=== PATIENT | female | born 1960 | race Caucasian/White ===

== ENCOUNTER 2021-10-22 16:00 | Outpatient (RCR) | payer OTHER, SELFPAY ==
--- NOTE | 2021-08-25 16:53 | HP.PTEVAL_ITS ---
Patient's Visit Information RISHI GRAF is a 61 year old F referred to Physical Therapy by Dr. Libia Cox DO with a diagnosis of B achilles tendonitis.. Date of Evaluation: 08/25/21 Physical Therapist: Last Salcido, DPT, OCS, CSCS - Visit Plan Frequency: 3x /Week Duration: 4-6 Weeks Plan: 3x/.week for 3-6 weeks. Heel lift put in R shoe and asked to where that or [employer] at all times. may choose to buy heel lifts if helpful. Treat with US to R medial achilles non thermal each session please, activitiy modification, STM and rollout to R gastroc, PROM and stretching B gastroc, eccentric strength and progression to HEP - Subjective Ankle and foot hurt. Was seeing dr. chris adn had PT for PFitis. Was treated with therapy for that and achilles tendonitis. It helped some and that was in March/April. Wasn't doing great and sought another opinion. (had stopped ex as it was not changing) Will f/u with doctor in one month. Pain is mostly R foot inside of ankle./heel. Pain is worse with activity and 0-8/10. it is about a year old and worse with outdoor work. Housework standing can hurt. Feels good at times. Hobbles in am but loosens up quickly to painfree then worse. L side get to 1/10 in similar pattern. All onset is insidious. Sleep is OK, can feel it if she turns her foot wrong. 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 Steps are challenging adn painful, must do one at a time sometimes. Limps in evening. HEP step heel raises, seated heel rasies. Doctor gave orhtotics a couple days ago and is wearing. - Pain R inside ankle Pain Intensity (Out of 10): 0 Pain Intensity Range: 0, 8 - Objective Walks I back to PT eval room avoiding pushoff. Transfers I. Able to come down steps and painful at R plant. Tender to palpation medial r achilles 1 inch proximal to insertion, slight tenderness same are on L. No tenderness in PF origin or peroneals or PTT. AROM 0 Df R and 5 on L with knee straight 5 B with knee bent. inv/ev/PF symmetircal and normal B. Big toe ext adn flexion WNL and strength 4+. yvan strength 4+ in all directions but pain PF R. Heel raises painful R and SLS r hurts, less so with heel lift under heel or [employer] on. - gastroc squeeze test. - Balance/Special Test Scores Lower Extremity Functional Score: 33 - Goals Goal 1:: Sleep without waking Goal Time Frame: 4-6 Weeks Goal 2:: No tenderness or pain with heel lift Goal Time Frame: 4-6 Weeks Goal 3:: walk and steps without gait deviation Goal Time Frame: 4-6 Weeks Goal 4:: I aopprop management of condition. Goal Time Frame: 4-6 Weeks - Rehabilitation Potential Physical Therapy Diagnosis: B achilles tendonitis limiting function. Rehabilitation Potential: Good - Anticipated Interventions Patient/Client Instruction: Educate patient on: Condition, Plan of Care For the Purpose of:: To decrease pain, To increase ROM, To improve muscle performance and motor function, To increase tolerance to activity/condition/position, To improve ability of physical actions for home/community/work/leisure, To improve gait and locomotor functions Therapeutic Exercise to Include: Strength training, Flexibilty training, Gait and locomotor training, Passive ROM, Active ROM For the Purpose of:: To decrease pain, To increase ROM, To improve muscle performance and motor function, To increase tolerance to activity/condition/position, To improve ability of physical actions for home/community/work/leisure Manual Therapy Techniques to Include: Soft tissue mobilization For the Purpose of:: To improve nutrient delivery to tissue Orthotics: Shoe insert For the Purpose of:: To decrease pain Ultrasound (thermal/non thermal): Yes - nonthermal For the Purpose of:: To decrease pain, To decrease swelling/inflammation Thank you for the opportunity to evaluate your patient. For Medicare and Medicare HMO plans, please review the plan of care and approve it. It will need to be FAXED BACK to us at [phone] for Medicare purposes. For Medicare only, by signing this I certify the plan of care. Please let me know if there are questions or concerns regarding this plan of care. Physician Signature: Date:
--- NOTE | 2021-10-22 16:51 | HP.PTDCSUM ---
It has been my pleasure to treat RISHI GRAF referred by Dr. Libia Cox DO, with the diagnosis of B achilles tendonitis. for a total of 15 visit(s). Discharge Date: 10/22/21 Please see the following information for a summary of their discharge status. Subjective: Making good progress. Pain is less intense and less often. Still triggered by walking 1/4 mile and 5/10. It then is intermittent and goes away with resting. Stretching feels better. Wall gastroc stretch at home and eccentric strength 3x10 2x/day. Sleep is not a problem. Work is still effected playing games with little ones. Steps are still slightly painful but can now alternate steps. R inside ankle Pain Intensity (Out of 10): 0 % Improvement: 85 Objective/Function: Walks without gait deviations today, steps normal with slight pain descending. Very tender inside R achilles insertion still. Painful with heel raises. Goal 1:: Sleep without waking Goal Progress: Goal Met Goal 2:: No tenderness or pain with heel lift Goal Progress: Goal Met Goal 3:: walk and steps without gait deviation Goal Progress: Goal Met Goal 4:: I aopprop management of condition. Goal Progress: Goal Met Plan: d/c, pt to have MRI ad f/u with doctor. If there are questions or concerns regarding this patient's physical therapy, please feel free to call me at [phone]. Thank you for the referral of this patient. Sincerely, Last Salcido, DPT, OCS, CSCS Balance/Gait/Functional tests - Balance/Special Test Scores Lower Extremity Functional Score: 56
== END 2021-10-22 19:00 | disposition home or self-care (01) ==
LOC: PT 16:00
PROVIDERS: PCP Internal Medicine; Referring Provider Family Medicine; Visit Provider Family Medicine
DX: M72.2 Plantar fascial fibromatosis (principal); M76.61 Achilles tendinitis, right leg; M76.62 Achilles tendinitis, left leg
CPT/HCPCS: 97035; 97110; 97140; 97161; 97164; 97530